=== PATIENT | female | born 1990 | race American Indian/Alaskan Native ===

== ENCOUNTER 2017-01-08 20:28 | Inpatient (IN) | payer OTHER ==
[2017-01-08 21:06] VITALS: BMI 29.0
[2017-01-08] MEDS ORDERED: Penicillin G Potassium 5 MU in Sodium Chloride 0.9% 50 ML IVPB ONE (21:09)
[2017-01-08] MEDS ORDERED: Lactated Ringer's 1,000 ML IV SCH (21:15)
--- NOTE | 2017-01-08 21:16 | OBADHP ---
Datetime: 01/08/2017 21:11 Admit Comment, IP Provider: 26-year-old 001 at 36 weeks and 6 days gestational age presents to OB ED complaining of contractions and leakage of fluids. Patient denies any vaginal bleeding. Patien t reports good movement. Patient reports contraction pain 8 out of 10. records reviewe d. GBS done but result is still pending. Past medical history anemia Past surgical history none Medications vitamins No known drug allergies Obstetrical history normal spontaneous vaginal delivery 1 Social history no tobacco, no drugs, no alcohol Physical exam: Refer to physical exam findings Assessment: 26-year-old 001 at 36 weeks and 6 days gestational age in active labor with spon taneous rupture of membranes. Unknown GBS status. Plan: Admit for management of labor and delivery IV penicillin G for GBS prophylaxis Patient requesting epidural, contact anesthesia Both maternal well-being and well-being reassuring at this time. Pelvic Type - PN: Adequate Extremities - PN: Normal Abdomen - PN: Normal Back - PN: Normal Breast - PN: Normal Lungs - PN: Normal Heart - PN: Normal Thyroid - PN: Normal Neurologic - PN: Normal HEENT - PN: Normal General - PN: Normal FHR - Baseline A Provider: 140s-150s Amniotic Fluid Color, Provider: Clear Membranes, Provider: Ruptured Contraction Comments Provider: q3-4min Comments, ACOG Physical Exam: Positive pooling fluid on exam. Grossly ruptured. Cephalic via exam. Estimated weight 7-1/2 pounds. Pool Provider: Positive IP Hx Assessment: The History has been Reviewed and is Current Vital Signs Provider: Reviewed; Within Normal Limits IP Chief Complaint: Uterine contractions; Suspected ruptured membranes NICHD Variability Prov Fetus A: Moderate 6-25bpm NICHD Accel Fetus A IP Provider: [id number] FHR Category Provider Fetus A: Category I Dilatation, Provider: 4 Effacement, Provider: 100 Station, Provider: 0 Genitourinary Exam: Normal DTRs - PN: Normal EGA AdmitDate IP: 36.6 IP Adm Impression: , intrauterine ; Active labor; Ruptured Membranes IP Admit Plan: Admit to unit; Initiate labor protocol
[2017-01-08] MEDS ORDERED: Lidocaine 1% Inj (20ml) ONE (21:24)
[2017-01-08 21:30] LABS: BASO % 0.3 % (0.0-2.0); EOS % 0.1 % (0.0-4.0); HEMATOCRIT 27.9 % (34.0-47.0); LYMPH # 1.7 K/uL (1.0-4.3); LYMPH % 11.6 % (20.0-40.0); MEAN CORPUSCULAR HEMOGLOBIN 19.8 pg (27.0-31.0); MEAN CORPUSCULAR HGB CONC 30.4 g/dL (33.0-37.0); MEAN PLATELET VOLUME 8.7 fl (7.2-11.7); MONO % 6.5 % (0.0-10.0); NEUT # 12.1 K/uL (1.8-7.0); NEUT % 81.5 % (50.0-75.0); RED CELL DISTRIBUTION WIDTH 18.6 % (11.5-14.5); WHITE BLOOD COUNT 14.9 K/uL (4.8-10.8)
[2017-01-08] MEDS: Lactated Ringer's 1,000 ML IV SCH ×2 (21:30→21:45)
[2017-01-08] MEDS ORDERED: Bupivacaine HCl 0.25% PF (10 ml) Inj ONE (21:47)
[2017-01-08] MEDS ORDERED: Fentanyl/Bupivacaine HCl 250 ML EPI ONE (21:47)
[2017-01-08] MEDS ORDERED: Penicillin G 5 Million Unit Vial IVPB ONE (22:12)
[2017-01-08 23:28] VITALS: BP 114/69; PULSE 97; RESP 16; TEMP 98; O2SAT 100
--- NOTE | 2017-01-09 02:12 | OBPN ---
Datetime: 01/09/2017 02:06 IP Progress Impression: Normal progression of labor; Reassuring heart rate IP Progress Plan: Continue present management; Deliver- Section Membranes, Provider: Ruptured Contraction Comments Provider: q 4 min FHR - Baseline A Provider: 145 Gestation - Est Wks by US: 37.0 Presentation-Admit: Vertex IP Progress Note Comment: Pt seen and examined reports pelvic pressure, denies ctx, +LOF, +FM VS VE: 10/100/0 A/P @ 37 wks GA SROM in active labor, fully dilated -start pushing -anticipate -Hb: 7.5, bleeding / blood transfuion precautions advised Vital Signs Provider: Reviewed; Within Normal Limits NICHD Accel Fetus A IP Provider: 15X15 FHR Category Provider Fetus A: Category I NICHD Variability Prov Fetus A: Moderate 6-25bpm Dilatation, Provider: 10 Effacement, Provider: 100 Station, Provider: 0 NICHD Decel Fetus A IP Provider: Early Datetime: 01/08/2017 21:11 Pool Provider: Positive Amniotic Fluid Color, Provider: Clear
--- NOTE | 2017-01-09 03:01 | OBDS ---
MATERNAL INFORMATION Provider Comments: Pt was fully dilated and pushing, atraumatic, spotneaoud delivery of head in DANIA position with nuchal x 1 reduced, atrumatic, sponataneuos delivery f anterior followed by posterior s [place] followed by delivery of body with body cord x 1 reduced. Both oral and nasal passages of the baby were bulb suctioned. Umbilical cord was clamped and cut. Baby was handed to mother on abdomen with RN assistance. Cord blood and cord gases collected and sent x 2. Spontaneous delivery of intac t placenta with membranes. Fundus Firm, good hemostasis. Superficicial periurethral laceration not b leeding. Red rubber straight cathether inserted 20cc clear yellow urine released from intact urethra. Good hemostasis, no complications. Live female apgars 9,9 weight: baby being examined by mobility developer, see nurses notes ebl 300ml LABOR SUMMARY EDC: 01/30/2017 00:00 No. Babies in Womb: 1 LABOR INFORMATION Group B Beta Strep: unknown, receiving TX of Pen G for SROM VAGINAL DELIVERY Episiotomy: None Laceration Extension: N/A Laceration Type: Periurethral Other Laceration: not bleeding, hemostatic Laceration Repair: Not Applicable Count Comment: yes
[2017-01-09] MEDS ORDERED: Oxycodone/Acetaminophen 5/325 mg Tab PO PRN ×4 (03:12→04:52)
[2017-01-09 07:58] LABS: BASO % 0.2 % (0.0-2.0); HEMATOCRIT 25.3 % (34.0-47.0); LYMPH # 1.4 K/uL (1.0-4.3); LYMPH % 6.7 % (20.0-40.0); MEAN CELL VOLUME 64.9 fl (81.0-99.0); MEAN CORPUSCULAR HEMOGLOBIN 19.7 pg (27.0-31.0); MEAN CORPUSCULAR HGB CONC 30.4 g/dL (33.0-37.0); MONO # 1.8 K/uL (0.0-0.8); MONO % 8.9 % (0.0-10.0); NEUT # 17.4 K/uL (1.8-7.0); NEUT % 84.2 % (50.0-75.0); PLATELET COUNT 253 K/uL (130-400); RED CELL DISTRIBUTION WIDTH 18.9 % (11.5-14.5); WHITE BLOOD COUNT 20.6 K/uL (4.8-10.8)
[2017-01-09] MEDS: ceFAZolin 1 GM in Sodium Chloride 0.9% 100 ML IVPB SCH ×2 (13:54→21:30)
[2017-01-09 14:55] LABS: TOTAL CELLS COUNTED 100
[2017-01-09 14:56] LABS: NEUTROPHIL 78 % (42-75)
[2017-01-09 14:57] LABS: REACTIVE LYMPHOCYTES 2 % (0-0)
[2017-01-09 15:00] LABS: PLATELET CLUMPS PRESENT
[2017-01-10] MEDS: ceFAZolin 1 GM in Sodium Chloride 0.9% 100 ML IVPB SCH (05:30)
[2017-01-10 07:06] LABS: HEMATOCRIT 25.9 % (34.0-47.0); MEAN CELL VOLUME 64.9 fl (81.0-99.0); MEAN CORPUSCULAR HEMOGLOBIN 19.8 pg (27.0-31.0); MEAN CORPUSCULAR HGB CONC 30.6 g/dL (33.0-37.0); RED CELL DISTRIBUTION WIDTH 18.9 % (11.5-14.5); WHITE BLOOD COUNT 15.5 K/uL (4.8-10.8)
[2017-01-10] MEDS: Lansinoh for Breast Feeding Mothers TP SCH ×2 (09:15→16:19)
[2017-01-11 07:11] LABS: BASO % 0.3 % (0.0-2.0); EOS # 0.2 K/uL (0.0-0.7); EOS % 1.3 % (0.0-4.0); HEMATOCRIT 26.7 % (34.0-47.0); LYMPH # 2.5 K/uL (1.0-4.3); LYMPH % 18.8 % (20.0-40.0); MEAN CELL VOLUME 64.3 fl (81.0-99.0); MEAN CORPUSCULAR HEMOGLOBIN 20.1 pg (27.0-31.0); MEAN CORPUSCULAR HGB CONC 31.2 g/dL (33.0-37.0); MEAN PLATELET VOLUME 8.9 fl (7.2-11.7); MONO # 0.8 K/uL (0.0-0.8); MONO % 5.8 % (0.0-10.0); NEUT # 9.9 K/uL (1.8-7.0); NEUT % 73.8 % (50.0-75.0); NRBC % 0.1 % (0.0-0.0); RED CELL DISTRIBUTION WIDTH 18.7 % (11.5-14.5); WHITE BLOOD COUNT 13.5 K/uL (4.8-10.8)
[2017-01-11] MEDS: Lansinoh for Breast Feeding Mothers TP SCH (09:05)
--- NOTE | 2017-01-13 08:25 | OBDCSUM ---
Datetime: 01/11/2017 08:25 Discharge Instructions, Provider: Routine instructions given Discharge Diagnosis, Provider: Term Delivered Disch Referrals: None Contraception discussed, Prov: Yes Discharge Comment, Provider: f/u 6 weeks precuatiosn given Contraception after Delivery: Not Planning to Use
--- NOTE | 2017-01-13 08:25 | OBPPN ---
Datetime: 01/13/2017 08:25 PP Pain Prov: Within normal limits PP Nausea Prov: Denies PP Flatus Prov: Yes PP Breasts Prov: Normal PP Heart Prov: Normal PP Lungs Prov: Normal PP Abdomen/Uterus Prov: Normal PP Lochia Prov: Normal PP Vulva/Perineum Prov: Normal PP CVA Tenderness Prov: Normal PP Extremities Prov: Normal PP Impression Prov: Normal progression PP Plan Prov: Discharge IP PP Procedures: None Datetime: 01/10/2017 19:34 PP BM Prov: No PP C/S Incision Prov: Not Applicable PP Progress Prov: Normal PP Progress Note Prov: Patient was seen and examined at bedside. Patient states she is feeling well, tolerating fluids and regular diet without complains. patient is ambulating on her own without dizzi ness or other complains. Voiding well, passing gas, but has not yet had a bowel movement. Reports loc hia are less than menses, and no foul-smelling. Baby is doing well, breast/bottle feeding. O:Vital sign WNL/stable, no tachycardic Abd: Soft, mild distended that correlates with abdomen, mild tender to palpation at [place] level, but no rigidity, guarding or rebound tenderness noted.Uterus firm below umbilicus. Ext: no edema, no calf tenderness, Lance's sign negative B/L A:26 y/o , s/p PPD1 with normal popstpartum progression. Plan: continue current management Encourage good hydration and ambulation Encourage Anticipated DC on 01/11/17 Dilma Rodriguez PGY1 agree with above Vital Signs Provider PP: Reviewed; Within Normal Limits
--- NOTE | 2017-01-13 08:27 | OBPPN ---
Datetime: 01/13/2017 08:25 PP Progress Note Prov: delayed entry 01/11 pt seen no complaitns, stable to dicharge home rto 6 weeks precautions given
== END 2017-01-11 12:15 | disposition home or self-care (01) | DRG 775 ==
LOC: H.EROB2 20:28 → H.L&D 21:06 → H.OB/GYN 01-09 04:45
PROVIDERS: ADMIT Obstetrics & Gynecology; ATTEND Obstetrics & Gynecology
PROC: 10E0XZZ Delivery of Products of Conception, External Approach (ICD-10-PCS; principal; 2017-01-09)
DX: O60.14X0 Preterm labor third trimester with preterm delivery third trimester, not applicable or unspecified (principal); O69.81X0 Labor and delivery complicated by cord around neck, without compression, not applicable or unspecified; O71.82 Other specified trauma to perineum and vulva; Z37.0 Single live birth; Z3A.36 36 weeks gestation of pregnancy